=== PATIENT | female | born 1985 | race American Indian/Alaskan Native ===

== ENCOUNTER 2020-09-17 17:00 | Emergency (ER) | payer MEDICAID ==
[2020-09-17] MEDS ORDERED: METOCLOPRAMIDE 10 MG/2 ML INJ IV ONE (18:00)
[2020-09-17] MEDS ORDERED: LACTATED RINGERS 1,000 ML IV ONE (18:01)
--- NOTE | 2020-09-17 18:06 | Emergency Department Report ---
ED General Adult HPI - General Chief complaint: Nausea/Vomiting/Diarrhea Stated complaint: FOOD POISONING Time Seen by Provider: 09/17/20 17:15 Source: patient Mode of arrival: Ambulatory Limitations: No Limitations - History of Present Illness Initial comments: 35-year-old -Iraqi female patient presents with complaints of sudden onset of nausea and vomiting starting around 4 AM. Patient states she is 8 weeks and is currently following with an CHEF GERMAN whose name she cannot remember at this time. She is G7, . She reports she does have some lower abdominal pain that started after the vomiting, however she denies any dysuria /hematuria/vaginal discharge, vaginal bleeding, dyspareunia, diarrhea/constipation, or fever/chills/sweats. No loss of taste/smell, chest pain, cough, or shortness of breath per patient. She rates her current pain as a 5/10 in severity. She states that she did eat out last night around 10 PM. No other prior medical history per patient. - Related Data Previous Rx's Medication Instructions Recorded Last Taken Type Metoclopramide [Reglan] 10 mg PO TID PRN #10 tab 09/17/20 Unknown Rx diphenhydrAMINE [Benadryl CAP] 25 mg PO TID PRN #10 capsule 09/17/20 Unknown Rx Allergies Allergy/AdvReac Type Severity Reaction Status Date / Time No Known Allergies Allergy Verified 09/17/20 17:06 ED Review of Systems ROS: Stated complaint: FOOD POISONING Other details as noted in HPI Constitutional: denies: chills, diaphoresis, fever, malaise, weakness ENT: denies: ear pain Respiratory: denies: cough, shortness of breath Cardiovascular: denies: chest pain Gastrointestinal: abdominal pain, nausea, vomiting. denies: diarrhea, constipation, hematemesis, melena, hematochezia Genitourinary: denies: urgency, dysuria, frequency, hematuria, discharge, abnormal menses, dyspareunia Musculoskeletal: denies: back pain Skin: denies: rash, lesions, change in color Neurological: denies: headache Hematological/Lymphatic: denies: swollen glands ED Past Medical Hx - Social History Smoking Status: Current Every Day Smoker Substance Use Type: Alcohol - Medications Home Medications: Home Medications Medication Instructions Recorded Confirmed Last Taken Type Metoclopramide [Reglan] 10 mg PO TID PRN #10 tab 09/17/20 Unknown Rx diphenhydrAMINE [Benadryl CAP] 25 mg PO TID PRN #10 capsule 09/17/20 Unknown Rx ED Physical Exam - General Limitations: No Limitations General appearance: alert, in no apparent distress, other (Active vomiting) - Head Head exam: Present: atraumatic, normocephalic - Eye Eye exam: Present: scleral icterus. Absent: PERRL - ENT ENT exam: Present: mucous membranes moist - Neck Neck exam: Present: normal inspection - Respiratory Respiratory exam: Present: normal lung sounds bilaterally. Absent: respiratory distress - Cardiovascular Cardiovascular Exam: Present: regular rate, normal rhythm - GI/Abdominal GI/Abdominal exam: Present: soft, tenderness (Mild suprapubic tenderness to palpation), normal bowel sounds. Absent: distended, guarding, rebound, rigid - Extremities Exam Extremities exam: Present: full ROM - Back Exam Back exam: Absent: CVA tenderness (R), CVA tenderness (L) - Neurological Exam Neurological exam: Present: alert, oriented X3, normal gait - Psychiatric Psychiatric exam: Present: normal affect, normal mood - Skin Skin exam: Present: warm, dry, intact, normal color. Absent: rash, cyanosis, diaphoretic, ecchymosis ED Course Vital Signs 09/17/20 17:05 Temperature 98.7 F Pulse Rate 74 Respiratory 22 Rate Blood Pressure 140/73 O2 Sat by Pulse 95 Oximetry ED Medical Decision Making - Lab Data Result diagrams: 09/17/20 18:08 09/17/20 18:08 Lab Results 09/17/20 09/17/20 09/17/20 Range/Units 18:08 18:08 18:08 WBC 8.3 (4.5-11.0) K/mm3 RBC 4.15 (3.65-5.03) M/mm3 Hgb 14.2 (10.1-14.3) gm/dl Hct 41.6 (30.3-42.9) % MCV 100 H (79-97) fl MCH 34 H (28-32) pg MCHC 34 (30-34) % RDW 12.7 L (13.2-15.2) % Plt Count 312 (140-440) K/mm3 Lymph % (Auto) 24.4 (13.4-35.0) % [place] % (Auto) 9.5 H (0.0-7.3) % Eos % (Auto) 1.0 (0.0-4.3) % Baso % (Auto) 0.6 (0.0-1.8) % Lymph # (Auto) 2.0 (1.2-5.4) K/mm3 [place] # (Auto) 0.8 (0.0-0.8) K/mm3 Eos # (Auto) 0.1 (0.0-0.4) K/mm3 Baso # (Auto) 0.0 (0.0-0.1) K/mm3 Seg Neutrophils % 64.5 (40.0-70.0) % Seg Neutrophils # 5.3 (1.8-7.7) K/mm3 Sodium 137 (137-145) mmol/L Potassium 3.5 L (3.6-5.0) mmol/L Chloride 103.5 (98-107) mmol/L Carbon Dioxide 26 (22-30) mmol/L Anion Gap 11 mmol/L BUN 7 (7-17) mg/dL Creatinine 0.5 L (0.6-1.2) mg/dL Estimated GFR > 60 ml/min BUN/Creatinine Ratio 14 % Glucose 80 (65-100) mg/dL Calcium 8.8 (8.4-10.2) mg/dL Total Bilirubin 0.50 (0.1-1.2) mg/dL AST 13 (5-40) units/L ALT 10 (7-56) units/L Alkaline Phosphatase 38 (35-129) units/L Total Protein 6.9 (6.3-8.2) g/dL Albumin 4.1 (3.9-5) g/dL Albumin/Globulin Ratio 1.5 % Lipase 14 (13-60) units/L HCG, Quant [id number] H (0-4) mIU/mL Urine Color (Yellow) Urine Turbidity (Clear) Urine pH (5.0-7.0) Ur Specific Corn[place] (1.003-1.030) Urine Protein (Negative) mg/dL Urine Glucose (UA) (Negative) mg/dL Urine Ketones (Negative) mg/dL Urine Blood (Negative) Urine Nitrite (Negative) Urine Bilirubin (Negative) Urine Urobilinogen (<2.0) mg/dL Ur Leukocyte Esterase (Negative) Urine WBC (Auto) (0.0-6.0) /HPF Urine RBC (Auto) (0.0-6.0) /HPF U Epithel Cells (Auto) (0-13.0) /HPF Urine Mucus /HPF 09/17/20 Range/Units 18:52 WBC (4.5-11.0) K/mm3 RBC (3.65-5.03) M/mm3 Hgb (10.1-14.3) gm/dl Hct (30.3-42.9) % MCV (79-97) fl MCH (28-32) pg MCHC (30-34) % RDW (13.2-15.2) % Plt Count (140-440) K/mm3 Lymph % (Auto) (13.4-35.0) % [place] % (Auto) (0.0-7.3) % Eos % (Auto) (0.0-4.3) % Baso % (Auto) (0.0-1.8) % Lymph # (Auto) (1.2-5.4) K/mm3 [place] # (Auto) (0.0-0.8) K/mm3 Eos # (Auto) (0.0-0.4) K/mm3 Baso # (Auto) (0.0-0.1) K/mm3 Seg Neutrophils % (40.0-70.0) % Seg Neutrophils # (1.8-7.7) K/mm3 Sodium (137-145) mmol/L Potassium (3.6-5.0) mmol/L Chloride (98-107) mmol/L Carbon Dioxide (22-30) mmol/L Anion Gap mmol/L BUN (7-17) mg/dL Creatinine (0.6-1.2) mg/dL Estimated GFR ml/min BUN/Creatinine Ratio % Glucose (65-100) mg/dL Calcium (8.4-10.2) mg/dL Total Bilirubin (0.1-1.2) mg/dL AST (5-40) units/L ALT (7-56) units/L Alkaline Phosphatase (35-129) units/L Total Protein (6.3-8.2) g/dL Albumin (3.9-5) g/dL Albumin/Globulin Ratio % Lipase (13-60) units/L HCG, Quant (0-4) mIU/mL Urine Color Yellow (Yellow) Urine Turbidity Clear (Clear) Urine pH 6.0 (5.0-7.0) Ur Specific Cornish 1.033 H (1.003-1.030) Urine Protein 30 mg/dl (Negative) mg/dL Urine Glucose (UA) Neg (Negative) mg/dL Urine Ketones 20 (Negative) mg/dL Urine Blood Sm (Negative) Urine Nitrite Neg (Negative) Urine Bilirubin Neg (Negative) Urine Urobilinogen 4.0 (<2.0) mg/dL Ur Leukocyte Esterase Neg (Negative) Urine WBC (Auto) 2.0 (0.0-6.0) /HPF Urine RBC (Auto) 7.0 (0.0-6.0) /HPF U Epithel Cells (Auto) 4.0 (0-13.0) /HPF Urine Mucus 3+ /HPF - Radiology Data Radiology results: report reviewed ULTRASOUND OBSTETRIC INDICATION: Pelvic pain. 9 weeks . TECHNIQUE: Transabdominal and Transvaginal. COMPARISON: None available. FINDINGS: GESTATIONAL SAC: Well-defined single sac of oval shape and intrauterine in location. YOLK SAC: No significant abnormality. EMBRYO/FETUS A: No significant abnormality. - [place]-Rump Length = 2.3 cm = 9 weeks, 0 day(s). - Heart Rate = 176 beats per minute. EMBRYO/FETUS B: No significant abnormality. - [place]-Rump Length = 2.6 cm = 9 weeks, 3 day(s). - Heart Rate = 177 beats per minute. ADNEXA: No significant abnormality. FREE FLUID: None. ADDITIONAL FINDINGS: None. IMPRESSION: Living monochorionic monoamniotic intrauterine twin with estimated sonographic age of 9 weeks, 3 day(s). - Medical Decision Making 35-year-old -Ira[place] female patient presents with complaints of sudden onset of nausea and vomiting starting around 4 AM. Patient states she is 8 weeks and is currently following with an CHEF GERMAN whose name she cannot remember at this time. She is G7, . She reports she does have some lower abdominal pain that started after the vomiting, however she denies any d ysuria/hematuria/vaginal discharge, vaginal bleeding, dyspareunia, diarrhea/constipation, or fever/chills/sweats. No loss of taste/smell, chest pain, cough, or shortness of breath per patient. She rates her current pain as a 5/10 in severity. She states that she did eat out last night around 10 PM. No other prior medical history per patient. Patient given Reglan and Benadryl and 1 L of lactated Ringer's. Her vomiting has been controlled here in the ED and she is tolerating fluids p.o. No acute abnormalities noted on CBC, CMP, or UA. Ultrasound shows viable twin IUP without any acute abnormalities. Vitals remain normal. Patient is well- appearing and stable for discharge home. Prescription for Reglan and Benadryl given for home. Suspect patient symptoms were due to viral gastritis and recommend follow-up with primary care in 3 to 5 days. Signs and symptoms that should prompt immediate return to the ED were discussed in great detail with patient who verbalized understanding. Critical care attestation.: If time is entered above; I have spent that time in minutes in the direct care of this critically ill patient, excluding procedure time. ED Disposition Clinical Impression: Viral gastritis Disposition: DC- TO HOME OR SELFCARE Is pt being admited?: No Condition: Stable Instructions: Gastritis, Adult Prescriptions: diphenhydrAMINE [Benadryl CAP] 25 mg PO TID PRN #10 capsule PRN Reason: Nausea Metoclopramide [Reglan] 10 mg PO TID PRN #10 tab PRN Reason: Nausea Referrals: PRIMARY CARE, [Primary Care Provider] - 2-3 Days
[2020-09-17 18:40] LABS: Basophils % (Auto) 0.6 % (0.0-1.8); Eosinophils # (Auto) 0.1 K/mm3 (0.0-0.4); Hematocrit 41.6 % (30.3-42.9); Hemoglobin 14.2 gm/dl (10.1-14.3); Lymphocytes % (Auto) 24.4 % (13.4-35.0); Mean Corpuscular HGB Conc 34 % (30-34); Mean Corpuscular Volume 100 fl (79-97); Monocytes # (Auto) 0.8 K/mm3 (0.0-0.8); Monocytes % (Auto) 9.5 % (0.0-7.3); Red Blood Count 4.15 M/mm3 (3.65-5.03); Red Cell Distribution Width 12.7 % (13.2-15.2)
[2020-09-17 19:04] LABS: Alanine Aminotransferase 10 units/L (7-56); Albumin 4.1 g/dL (3.9-5); Blood Urea Nitrogen 7 mg/dL (7-17); Calcium 8.8 mg/dL (8.4-10.2); Hemolysis Index 7
[2020-09-17 19:05] LABS: BUN/Creatinine Ratio 14
[2020-09-17 19:25] LABS: Bilirubin,Urine NEG (Negative); Blood,Urine SM (Negative); Color,Urine Yellow (Yellow); Mucus,Urine 3+ /HPF
[2020-09-17 19:28] LABS: Platelet Count 312 K/mm3 (140-440)
--- NOTE | 2020-09-17 20:55 | Ultrasound Report ---
ULTRASOUND OBSTETRIC INDICATION: Pelvic pain. 9 weeks . TECHNIQUE: Transabdominal and Transvaginal. COMPARISON: None available. FINDINGS: GESTATIONAL SAC: Well-defined single sac of oval shape and intrauterine in location. YOLK SAC: No significant abnormality. EMBRYO/FETUS A: No significant abnormality. - [place]-Rump Length = 2.3 cm = 9 weeks, 0 day(s). - Heart Rate = 176 beats per minute. EMBRYO/FETUS B: No significant abnormality. - [place]-Rump Length = 2.6 cm = 9 weeks, 3 day(s). - Heart Rate = 177 beats per minute. ADNEXA: No significant abnormality. FREE FLUID: None. ADDITIONAL FINDINGS: None. IMPRESSION: Living monochorionic monoamniotic intrauterine twin with estimated sonographic age of 9 wee ks, 3 day(s). Signer Name: Александр Khan MD Signed: 09/17/2020 8:51 PM Workstation Name: [id number]
--- NOTE | 2020-09-17 20:55 | Ultrasound Report ---
ULTRASOUND OBSTETRIC INDICATION: Pelvic pain. 9 weeks . TECHNIQUE: Transabdominal and Transvaginal. COMPARISON: None available. FINDINGS: GESTATIONAL SAC: Well-defined single sac of oval shape and intrauterine in location. YOLK SAC: No significant abnormality. EMBRYO/FETUS A: No significant abnormality. - [place]-Rump Length = 2.3 cm = 9 weeks, 0 day(s). - Heart Rate = 176 beats per minute. EMBRYO/FETUS B: No significant abnormality. - [place]-Rump Length = 2.6 cm = 9 weeks, 3 day(s). - Heart Rate = 177 beats per minute. ADNEXA: No significant abnormality. FREE FLUID: None. ADDITIONAL FINDINGS: None. IMPRESSION: Living monochorionic monoamniotic intrauterine twin with estimated sonographic age of 9 wee ks, 3 day(s). Signer Name: Александр Khan MD Signed: 09/17/2020 8:51 PM Workstation Name: [id number]
[2020-09-17] MEDS ORDERED: diphenhydrAMINE 25 MG CAP PO ONE (21:14)
[2020-09-17] MEDS ORDERED: METOCLOPRAMIDE 10 MG TAB PO ONE (21:14)
[2020-09-17 21:23] VITALS: BP 130/90
== END 2020-09-17 21:32 | disposition home or self-care (01) ==
LOC: ED 17:00
DX: K29.70 Gastritis, unspecified, without bleeding (principal); F17.200 Nicotine dependence, unspecified, uncomplicated; Z79.899 Other long term (current) drug therapy
CPT/HCPCS: 36415; 76801; 76802; 80053; 81001; 83690; 84702; 85025; 96361; 96374; 99284; J2765; J7120

== ENCOUNTER 2021-07-07 20:04 | Emergency (ER) | payer MEDICAID ==
[2021-07-07 20:35] VITALS: BP 138/103
== END 2021-07-07 21:30 ==
LOC: ED 20:04
DX: M54.9 Dorsalgia, unspecified (principal); Z53.21 Procedure and treatment not carried out due to patient leaving prior to being seen by health care provider

== ENCOUNTER 2021-07-08 05:13 | Emergency (ER) | payer MEDICAID ==
[2021-07-08 06:51] LABS: HCG Qualitative,Urine Negative (Negative)
[2021-07-08 06:55] LABS: Bilirubin,Urine NEG (Negative); Blood,Urine SM (Negative); Color,Urine Yellow (Yellow); Protein,Urine <15 mg/dL mg/dL (Negative); Urobilinogen,Urine < 2.0 mg/dL (<2.0)
[2021-07-08 06:57] LABS: Mucus,Urine 2+ /HPF
[2021-07-08] MEDS ORDERED: KETOROLAC 60 MG/2 ML INJ IM ONE (07:21)
--- NOTE | 2021-07-08 08:06 | Emergency Department Report ---
ED General Adult HPI - General Chief complaint: Back Pain/Injury Stated complaint: BACK PAIN Time Seen by Provider: 07/08/21 07:16 Source: patient Mode of arrival: Ambulatory Limitations: No Limitations - History of Present Illness Initial comments: 35-year-old -Turkish female patient presents with complaints of sudden onset of low back pain starting yesterday. Patient states the pain began suddenly when she went to sit in a deep seated chair. She describes the pain as sharp and stabbing and states it radiates down her right leg. Pain worsens with trying to get up from a seated position and ambulation per patient. She denies any past medical history including history of cancer. No loss of bladder/bowel control, numbness/tingling/weakness in her limbs, or difficulty with movement of the legs per patient. She has not tried any medications for her symptoms per patient. She rates the pain as a 9/10 in severity. Severity scale (0 -10): 8 - Related Data Previous Rx's Medication Instructions Recorded Last Taken Type Metoclopramide [Reglan] 10 mg PO TID PRN #10 tab 09/17/20 Unknown Rx diphenhydrAMINE [Benadryl CAP] 25 mg PO TID PRN #10 capsule 09/17/20 Unknown Rx Naproxen 500 mg PO BID PRN #20 tablet 07/08/21 Unknown Rx Prednisone [predniSONE 10 mg 10 mg PO .TAPER #1 tab.ds.pk 07/08/21 Unknown Rx (6-Day Pack, 21 Tabs)] methocarbamoL [Methocarbamol] 750 - 1,500 mg PO TID PRN #30 07/08/21 Unknown Rx tablet Allergies Allergy/AdvReac Type Severity Reaction Status Date / Time No Known Allergies Allergy Verified 07/08/21 05:15 ED Review of Systems ROS: Stated complaint: BACK PAIN Other details as noted in HPI Constitutional: denies: chills, fever, malaise Respiratory: denies: shortness of breath Cardiovascular: denies: chest pain Gastrointestinal: denies: abdominal pain, nausea, vomiting Genitourinary: denies: urgency, dysuria, frequency Musculoskeletal: back pain Skin: denies: change in color Neurological: denies: numbness, paresthesias ED Past Medical Hx - Past Medical History Previous Medical History?: No - Surgical History Additional Surgical History: - Social History Smoking Status: Current Every Day Smoker Substance Use Type: Alcohol - Medications Home Medications: Home Medications Medication Instructions Recorded Confirmed Last Taken Type Metoclopramide [Reglan] 10 mg PO TID PRN #10 tab 09/17/20 Unknown Rx diphenhydrAMINE [Benadryl CAP] 25 mg PO TID PRN #10 capsule 09/17/20 Unknown Rx Naproxen 500 mg PO BID PRN #20 tablet 07/08/21 Unknown Rx Prednisone [predniSONE 10 mg 10 mg PO .TAPER #1 tab.ds.pk 07/08/21 Unknown Rx (6-Day Pack, 21 Tabs)] methocarbamoL [Methocarbamol] 750 - 1,500 mg PO TID PRN #30 07/08/21 Unknown Rx tablet ED Physical Exam - General Limitations: No Limitations General appearance: alert, in no apparent distress - Head Head exam: Present: atraumatic, normocephalic - Eye Eye exam: Present: normal appearance. Absent: scleral icterus - Respiratory Respiratory exam: Absent: respiratory distress - Cardiovascular Cardiovascular Exam: Present: regular rate - Extremities Exam Extremities exam: Present: full ROM - Back Exam Back exam: Absent: paraspinal tenderness, vertebral tenderness - Expanded Back Exam Expanded Back exam: Absent: saddle anesthesia Back exam: Positive Straight Leg Raise: Right - Neurological Exam Neurological exam: Present: alert, oriented X3 - Psychiatric Psychiatric exam: Present: normal affect, normal mood - Skin Skin exam: Present: warm, dry, intact, normal color. Absent: rash ED Course Vital Signs 07/08/21 05:13 Temperature 98.3 F Pulse Rate 84 Respiratory 18 Rate Blood Pressure 123/89 [Left] O2 Sat by Pulse 97 Oximetry ED Medical Decision Making - Medical Decision Making 35-year-old -Turkish female patient presents with complaints of sudden onset of low back pain starting yesterday. Patient states the pain began suddenly when she went to sit in a deep seated chair. She describes the pain as sharp and stabbing and states it radiates down her right leg. Pain worsens with trying to get up from a seated position and ambulation per patient. She denies any past medical history including history of cancer. No loss of bladder/bowel control, numbness/tingling/weakness in her limbs, or difficulty with movement of the legs per patient. She has not tried any medications for her symptoms per patient. She rates the pain as a 9/10 in severity. Positive right straight leg raise test without acute abnormalities of the spine noted. She denies any red flag symptoms. Will treat for sciatica with NSAIDs, muscle relaxers, icing, stretching, and rest. Recommend follow-up with primary care provider, referral provided. Patient to also have her blood pressure rechecked with PCP. Patient is well-appearing, her vitals are within normal limits, she is stable for discharge home. Discussed in detail signs and symptoms that should prompt immediate return to the ED with patient who verbalizes understanding Critical care attestation.: If time is entered above; I have spent that time in minutes in the direct care of this critically ill patient, excluding procedure time. ED Disposition Clinical Impression: Acute low back pain Disposition: 01 HOME / SELF CARE / HOMELESS Is pt being admited?: No Condition: Stable Instructions: Acute Back Pain, Adult, Sciatica Prescriptions: methocarbamoL [Methocarbamol] 750 - 1,500 mg PO TID PRN #30 tablet PRN Reason: muscle spasm/tightness Naproxen 500 mg PO BID PRN #20 tablet PRN Reason: pain Prednisone [predniSONE 10 mg (6-Day Pack, 21 Tabs)] 10 mg PO .TAPER #1 tab.ds.pk Referrals: [facility] [Provider Group] - 3-5 Days Forms: Work/School Release Form(ED)
[2021-07-08 08:26] VITALS: BP 122/80
== END 2021-07-08 08:26 | disposition home or self-care (01) ==
LOC: ED 05:13
DX: M54.50 Low back pain, unspecified (principal); F17.200 Nicotine dependence, unspecified, uncomplicated
CPT/HCPCS: 81001; 81025; 96372; 99283; J1885

== ENCOUNTER 2021-09-01 13:43 | Emergency (ER) | payer MEDICAID ==
--- NOTE | 2021-09-01 15:12 | Emergency Department Report ---
Minor Respiratory - HPI Chief Complaint: Earache Stated Complaint: LOW HEARING IN LEFT EAR Time Seen by Provider: 09/01/21 15:12 Duration: 2 Days Pain Location: Ear Severity: moderate Minor Respiratory: Yes Able to Tolerate Fluids, Yes Ear Pain, No Rhinorrhea, No Sore Throat, No Cough, No Sick Contacts, No Hemoptysis, No Chest Pain, No Shortness of Breath, No Fever Other History: 36 yo comes to er with dec hearing from left ear. no trauma. no uri. she was cleaning ear with qtip and then started to have pain. ED Review of Systems ROS: Stated complaint: LOW HEARING IN LEFT EAR Other details as noted in HPI Comment: All other systems reviewed and negative ED Past Medical Hx - Past Medical History Previous Medical History?: No - Surgical History Past Surgical History?: No Additional Surgical History: - Family History Family history: no significant - Social History Smoking Status: Current Every Day Smoker Substance Use Type: Alcohol - Medications Home Medications: Home Medications Medication Instructions Recorded Confirmed Last Taken Type Amoxicillin [Trimox CAP] 500 mg PO BID #20 capsule 09/01/21 Unknown Rx Minor Respiratory Exam - Exam General: Vital signs noted. No distress. Alert and acting appropriately. HEENT: Yes Moist Mucous Membranes, No Pharyngeal Erythema, No Pharyngeal Exudates, No Rhinorrhea, No Conjuctival Injection, No Frontal Tenderness, No Maxillary Tenderness Ear: Left TM Erythema (left ruptured tm), Neither TM Bulge, Neither EAC Pain, Neither EAC Discharge Neck: Yes Supple, No Adenopathy Lungs: Yes Good Air Exchange, No Wheezes, No Ronchi, No Stridor, No Cough, No Labored Respirations, No Retractions, No Use of Accessory Muscles, No Other Abnormal Lung Sounds Heart: Yes Regular, No Murmur Abdomen: Yes Normal Bowel Sounds, No Tenderness, No Peritoneal Signs Skin: No Rash, No Edema Neurologic: Alert and oriented, no deficits. Musculoskeletal: Unremarkable. ED Course Vital Signs 09/01/21 14:53 Temperature 98.9 F Pulse Rate 61 Respiratory 16 Rate Blood Pressure 142/71 [Left] O2 Sat by Pulse 100 Oximetry ED Medical Decision Making - Medical Decision Making Vital Signs (72 hours) 09/01/21 14:53 Temperature 98.9 F Pulse Rate 61 Respiratory 16 Rate Blood Pressure 142/71 [Left] O2 Sat by Pulse 100 Oximetry ruptured left TM pt educated on med/nothing going in her hear and ENT follow up She verbalizes understanding of dc plan of care. Pt is ambulatory non ill and not toxic on exam - Differential Diagnosis om/oe/cerumen impaction Critical care attestation.: If time is entered above; I have spent that time in minutes in the direct care of this critically ill patient, excluding procedure time. ED Disposition Clinical Impression: Ruptured ear drum Disposition: 01 HOME / SELF CARE / HOMELESS Is pt being admited?: No Does the pt Need Aspirin: No Condition: Stable Instructions: Eardrum Rupture, [id number] Additional Instructions: motrin or tylenol for pain med as ordered today nothing in ear follow up with ent referral below Prescriptions: Amoxicillin [Trimox CAP] 500 mg PO BID #20 capsule Referrals: CODEY CASON MD [Staff Physician] - 3-5 Days KERRI JOHNSON MD [Staff Physician] - 3-5 Days Time of Disposition: 15:13
[2021-09-01 16:15] VITALS: BP 136/66
== END 2021-09-01 16:15 | disposition home or self-care (01) ==
LOC: ED 13:43
DX: H72.92 Unspecified perforation of tympanic membrane, left ear (principal); F17.200 Nicotine dependence, unspecified, uncomplicated; F10.20 Alcohol dependence, uncomplicated
CPT/HCPCS: 99282